=== PATIENT | female | born 1975 | race Caucasian/White ===

== ENCOUNTER 2019-01-01 22:51 | Emergency (ER) | payer SELFPAY ==
[~2019-01-01] VITALS: Ht 185.4 cm; Wt 111.0 kg
[2019-01-02] MEDS ORDERED: IBUPROFEN 600MG TABLET PO ONE
[2019-01-02 00:02] LABS: CLARITY URINE CLEAR (CLEAR); COLOR URINE YELLOW (YELLOW); KETONES URINE NEGATIVE (NEGATIVE); LEUKOCYTE ESTERASE URINE 1+ (NEGATIVE); NITRITE URINE NEGATIVE (NEGATIVE); OCCULT BLOOD URINE 1+ (NEGATIVE); PROTEIN URINE NEGATIVE (NEGATIVE); SPECIFIC GRAVITY URINE 1.008 (1.005-1.030)
[2019-01-02 02:08] VITALS: BP 127/69
== END 2019-01-02 02:12 | disposition home or self-care (01) ==
LOC: ER 22:51
DX: N12 Tubulo-interstitial nephritis, not specified as acute or chronic (principal); F17.200 Nicotine dependence, unspecified, uncomplicated; Z90.89 Acquired absence of other organs
CPT/HCPCS: 81003; 81025; 99283

== ENCOUNTER 2019-02-07 18:38 | Emergency (ER) | payer SELFPAY ==
[~2019-02-07] VITALS: Ht 185.4 cm; Wt 108.0 kg
[2019-02-07] MEDS ORDERED: IBUPROFEN 600MG TABLET PO STA (20:10)
[2019-02-07 21:45] VITALS: BP 113/64
== END 2019-02-07 21:30 | disposition home or self-care (01) ==
LOC: ER 18:43
DX: M25.532 Pain in left wrist (principal); M25.522 Pain in left elbow; W01.0XXA Fall on same level from slipping, tripping and stumbling without subsequent striking against object, initial encounter; Y93.89 Activity, other specified; Y92.89 Other specified places as the place of occurrence of the external cause; Y99.8 Other external cause status
CPT/HCPCS: 73080; 73110; 99283